=== PATIENT | male | born 1990 | race Caucasian/White ===

== ENCOUNTER 2017-04-19 12:40 | Emergency (ER) | payer SELFPAY ==
[~2017-04-19] VITALS: Ht 185.4 cm; Wt 81.6 kg
[2017-04-19] MEDS ORDERED: TETANUS AND DIPHTHERIA TOX/PF 0.5 ML VIAL. VAX IM ONE (13:15)
--- NOTE | 2017-04-19 13:19 | RAD ---
Three views FOOT LEFT 3V Clinical History: nail gun injury, possible foreign body retained Comparison: None. Findings: The visualized osseous structures appear normal. Impression: No acute findings. No radiopaque foreign body.
[2017-04-19 13:32] VITALS: BP 144/79
[2017-04-19] MEDS ORDERED: CIPR250T30 PO (13:33)
--- NOTE | 2017-04-19 13:33 | PHYS DOC ---
Past History Past Medical History: No Pertinent History Past Surgical History: No Surgical History Smoking: Cigarettes Alcohol Use: None Drug Use: Marijuana Adult General Chief Complaint Chief Complaint: PUNCTURE WOUND HPI HPI 26-year-old male patient states he accidentally punched left foot with a nail gun and removed the new nail from his foot but is not if the bleb of nail came out. Rated his pain 3/10 and states he doesn't know about his last tetanus shot. Patient also state he had pain in all of his joint for about 10 days and thinks maybe had chlamydia infection because last admin he had untreated Chlamydia infection he had the same symptoms. Patient denies any penile discharge or having new sexual partner and doesn't want a test for STD. Review of Systems Review of Systems Constitutional: Denies fever or chills [] Eyes: Denies change in visual acuity, redness, or eye pain [] HENT: Denies nasal congestion or sore throat [] Respiratory: Denies cough or shortness of breath [] Cardiovascular: No additional information not addressed in HPI [] GI: Denies abdominal pain, nausea, vomiting, bloody stools or diarrhea [] : Denies dysuria or hematuria [] Musculoskeletal: Denies back pain, reports joint pain [] Integument: Denies rash or skin lesions, reports puncture wound of left foot [] Neurologic: Denies headache, focal weakness or sensory changes [] Endocrine: Denies polyuria or polydipsia [] All other systems were reviewed and found to be within normal limits, except as documented in this note. Current Medications Current Medications Current Medications Medications (Trade) Dose Ordered Sig/Nancy Start Time Stop Time Status Last Admin Dose Admin Tetanus/ Diphtheria Toxoids Adsorbed (Tenivac Vial) 0.5 ml ONCE ONCE 04/19/17 13:15 04/19/17 13:16 DC 04/19/17 13:15 0.5 ML Allergies Allergies Allergies Coded Allergies Type Severity Reaction Last Updated Verified No Known Drug Allergies 04/19/17 No Physical Exam Physical Exam Constitutional: Well developed, well nourished, no acute distress, non-toxic appearance. [] HENT: Normocephalic, atraumatic, bilateral external ears normal, oropharynx moist, no oral exudates, nose normal. [] Eyes: PERRLA, EOMI, conjunctiva normal, no discharge. [] Neck: Normal range of motion, no tenderness, supple, no stridor. [] Cardiovascular:Heart rate regular rhythm, no murmur [] Lungs & Thorax: Bilateral breath sounds clear to auscultation [] Skin: Warm, dry, no erythema, no rash. [] Extremities: No tenderness, no cyanosis, no clubbing, ROM intact, no edema, puncture wound left dorsum of left foot in proximal of second metatarsal with mild tenderness and moderate erythema without active bleeding Neurologic: Alert and oriented X 3, normal motor function, normal sensory function, no focal deficits noted. [] Psychologic: Affect normal, judgement normal, mood normal. [] Current Patient Data Vital Signs Vital Signs Date Time Temp Pulse Resp B/P (MAP) Pulse Ox O2 Delivery O2 Flow Rate FiO2 04/19/17 13:02 97.8 98 18 99 Room Air EKG EKG [] Radiology/Procedures Radiology/Procedures [] Course & Med Decision Making Course & Med Decision Making Pertinent Imaging studies reviewed. (See chart for details) Patient was seen in ER because of a puncture wound of the left foot without foreign body retained or fracture . Patient also complaining of joint pain without sign of edema or inflammation of joint. Patient psychiatric follow up with his primary care physician regarding chronic joint pain. Plan to give prescription of for Cipro. Patient doesn't want to have prescription for pain medication. Tetanus shot was given in ER and wound cleaned and dressing applied. Dragon Disclaimer Dragon Disclaimer This electronic medical record was generated, in whole or in part, using a voice recognition dictation system. Departure Departure: Impression: Primary Impression: Puncture wound of left foot Additional Impressions: Tobacco abuse Tobacco abuse counseling Disposition: HOME, SELF-CARE (at 1331) Condition: IMPROVED Referrals: PCP,NO (PCP) Patient Instructions: Puncture Wound Additional Instructions: Follow-up with your primary care physician in 3-5 days if not getting better May take [id number] ibuprofen every 8 hours as needed for pain Scripts Ciprofloxacin Hcl (CIPRO) 250 Mg Tablet 1 TAB PO BID, #14 TAB Prov: YANELIS HILLS MD 04/19/17 Problem Qualifiers YANELIS HILLS MD Apr 19, 2017 13:33
== END 2017-04-19 13:37 | disposition home or self-care (01) ==
LOC: EDSEX 12:40 → ER 12:40
DX: S91.332A Puncture wound without foreign body, left foot, initial encounter (principal); F17.210 Nicotine dependence, cigarettes, uncomplicated; F12.10 Cannabis abuse, uncomplicated; Z71.6 Tobacco abuse counseling; W29.4XXA Contact with nail gun, initial encounter; Y93.89 Activity, other specified; Y99.8 Other external cause status; Y92.89 Other specified places as the place of occurrence of the external cause
CPT/HCPCS: 73630; 90471; 90714; 99284-25